=== PATIENT | male | born 1985 | race African-American/Black ===

== ENCOUNTER 2017-06-25 04:14 | Emergency (ER) | payer MEDICAID ==
[~2017-06-25] VITALS: Ht 167.6 cm; Wt 70.3 kg
[~2017-06-25 04:14] MED LIST: ALBUTEROL SULF8.5 GM INH; AZITHROMYCIN250 MG ORAL; IBUPROFEN600 MG ORAL; PREDNISONE20 MG ORAL; QVAR7.3 GM INH; VENTOLIN HFA18 GM INH
[2017-06-25 04:27] VITALS: BP 144/95
[2017-06-25] MEDS ORDERED: PREDNISONE20 MG ORAL (04:28)
--- NOTE | 2017-06-25 04:28 | Emergency Room Report ---
History of Present Illness General Chief Complaint: Asthma Source: Patient Present Illness HPI This is a 32-year-old male with history of asthma. He presents with chief complaint of asthma exacerbation. Onset for last few days. He had a cold is getting worse. Inhalers aren't helping. Worse with lying flat. Had fever initially but none now. No nausea or vomiting. No chest pain. Worse with exertion and laying flat. ever been intubated. Last ER visit was March last year. Admission was when he was young. Allergies: Coded Allergies: No Known Allergies (Unverified , 02/08/14) Patient History Past Medical History: see triage record, old chart reviewed, asthma Past Surgical History: none Pertinent Family History: none Social History: Denies: smoking Immunizations: other Reviewed Nursing Documentation: PMH: Agreed, PSxH: Agreed Nursing Documentation-PMH Hx Asthma: Yes Review of Systems Eye: Denies: eye pain, blurred vision ENT: Reports: nose congestion, Denies: ear pain, throat swelling Respiratory: Reports: cough, shortness of breath, wheezing Cardiovascular: Denies: chest pain, palpitations Gastrointestinal: Denies: abdominal pain, diarrhea, nausea, vomiting Musculoskeletal: Denies: back pain, joint pain Skin: Denies: rash Neurological: Denies: headache, numbness Endocrine: Denies: increased thirst, increased urine Hematologic/Lymphatic: Denies: easy bruising All Other Systems: negative except mentioned in HPI Physical Exam Vital Signs Date Time Temp Pulse Resp B/P (MAP) Pulse Ox O2 Delivery O2 Flow Rate FiO2 06/25/17 04:16 97.5 83 20 151/96 98 Room Air vitals with high blood pressure Sp02 EP Interpretation: reviewed, normal General Appearance: well appearing, no apparent distress, alert Head: normocephalic, atraumatic Eyes: bilateral eye PERRL, bilateral eye EOMI ENT: hearing grossly normal, normal pharynx Neck: full range of motion, supple, no meningismus Respiratory: chest non-tender, wheezing Cardiovascular #1: regular rate, rhythm, no murmur Gastrointestinal: normal bowel sounds, non tender, no mass, no organomegaly, no bruit, non-distended Musculoskeletal: back normal, gait/station normal, normal range of motion Neurologic: alert, oriented x3 Psychiatric: mood/affect normal Skin: warm/dry Medical Decision Making Diagnostic Impression: Primary Impression: Asthma exacerbation Qualified Codes: J45.901 - Unspecified asthma with (acute) exacerbation ER Course Patient presents with a viral illness complicated his asthma. No evidence of pneumonia. No evidence of respiratory failure stress. symptom resolved after breathing treatments. We'll discharge home. Last Vital Signs Date Time Temp Pulse Resp B/P (MAP) Pulse Ox O2 Delivery O2 Flow Rate FiO2 06/25/17 04:16 97.5 83 20 151/96 98 Room Air Status: improved Disposition: HOME, SELF-CARE Condition: Stable Scripts Prednisone* (PREDNISONE*) 20 Mg Tablet 60 MG ORAL DAILY, #12 TAB Prov: SISSY KHAN M.D. 06/25/17 Patient Instructions: Asthma, Adult Additional Instructions: Followup with your Dr. in 2-3 days. Return if symptom worsen. SISSY KHAN M.D. Jun 25, 2017 04:28
[2017-06-25] MEDS ORDERED: Ipratropium 0.02% Inh Soln 2.5ml UD HHN ONE (04:30)
[2017-06-25] MEDS ORDERED: Albuterol ud Inhalation HHN ONE (04:30)
[2017-06-25 05:04] VITALS: BP 144/95
== END 2017-06-25 05:04 | disposition home or self-care (01) ==
LOC: EMR 04:36
DX: J45.901 Unspecified asthma with (acute) exacerbation (principal)
CPT/HCPCS: 94640; 94664; 99284

== ENCOUNTER 2018-02-17 12:57 | Emergency (ER) | payer MEDICAID ==
[~2018-02-17] VITALS: Ht 167.6 cm; Wt 72.6 kg
[2018-02-17 13:27] VITALS: BP 131/90
--- NOTE | 2018-02-17 13:54 | Emergency Room Report ---
History of Present Illness General Chief Complaint: Diarrhea Source: Patient Present Illness HPI 32-year-old male presents to the emergency department complaining of 1 week of watery diarrhea upon returning from [facility]– [place]. Patient states that he was in [place] for approximately one week he did drink the water he returned on Monday and his symptoms began on Monday. Patient denies fevers, nausea, vomiting, blood in the stool, mucus in the stool he describes brown to yellowish watery diarrhea with not much consistency. Patient also reports multiple food allergies. Denies rashes. He denies abdominal pain except for 7/10 in severity cramping prior to bowel movement he reports mild cramping his main symptom is persistent and diarrhea. Allergies: Coded Allergies: ALMOND (Verified Allergy, Unknown, 02/17/18) Dairy (Verified Allergy, Unknown, 02/17/18) HAZELNUT (Verified Allergy, Unknown, 02/17/18) PENICILLINS (Verified Allergy, Unknown, 02/17/18) WHEAT (Verified Allergy, Unknown, 02/17/18) Patient History Past Medical History: see triage record Past Surgical History: none Pertinent Family History: none Reviewed Nursing Documentation: PMH: Agreed; PSxH: Agreed Nursing Documentation-PMH Hx Asthma: Yes Review of Systems All Other Systems: negative except mentioned in HPI Physical Exam Vital Signs Date Time Temp Pulse Resp B/P (MAP) Pulse Ox O2 Delivery O2 Flow Rate FiO2 02/17/18 13:27 98.5 85 17 131/90 96 Room Air 98.4 Sp02 EP Interpretation: reviewed, normal General Appearance: no apparent distress, alert, GCS 15, non-toxic Head: normocephalic, atraumatic ENT: hearing grossly normal, normal voice Neck: full range of motion Respiratory: lungs clear, normal breath sounds, speaking full sentences Cardiovascular #1: regular rate, rhythm Gastrointestinal: normal bowel sounds, non tender, soft Rectal: deferred Musculoskeletal: back normal, gait/station normal, normal range of motion, non- tender Neurologic: alert, oriented x3, responsive, motor strength/tone normal, sensory intact, normal gait, speech normal, grossly normal Psychiatric: judgement/insight normal Skin: normal color, no rash, warm/dry, well hydrated Medical Decision Making PA Attestation Dr. Marsh is my supervising Physician whom patient management has been discussed with. Diagnostic Impression: Primary Impression: Dehydration, mild Additional Impression: Diarrhea, travelers' ER Course 32-year-old male presents to the emergency department complaining of 1 week of watery diarrhea upon returning from [facility] [place]. Patient states that he was in [place] for approximately one week he did drink the water he returned on Monday and his symptoms began on Monday. Patient denies fevers, nausea, vomiting, blood in the stool, mucus in the stool he describes brown to yellowish watery diarrhea with not much consistency. Patient also reports multiple food allergies. Denies rashes. He denies abdominal pain except for 7/10 in severity cramping prior to bowel movement he reports mild cramping his main symptom is persistent and diarrhea. Ddx considered but are not limited to GE, colitis, Infectious diarrhea, dehydration just to name a few. Vital signs: pt. is afebrile, H&PE are most consistent with uncomplicated traveler's diarrhea No fevers, not hemorrhagic, no evidence to suggest acute abdomen on physical exam. ORDERS: -None required at this time, Pt. NAD, will treat clinically and reassess. ED INTERVENTIONS: -Mylanta PO -Bentyl -1000 NS iv hydration, Reassessment: After receiving above interventions I reexamine the patient he states he is feeling a lot better. I explained to him proposed treatment plan for return home, and symptomatic treatment. Patient verbalized his understanding and agreement with this plan. DISCHARGE: At this time pt. is stable for d/c to home. Will provide printed patient care instructions, and any necessary prescriptions. Care plan and follow up instructions have been discussed with the patient prior to discharge. Last Vital Signs Date Time Temp Pulse Resp B/P (MAP) Pulse Ox O2 Delivery O2 Flow Rate FiO2 02/17/18 13:27 98.5 85 17 131/90 96 Room Air 98.4 Disposition: HOME, SELF-CARE Condition: Stable Scripts Simethicone (Simethicone) 125 Mg Capsule 125 MG PO DAILY, #10 CAP Prov: Acacia Teixeira 02/17/18 Dicyclomine Hcl* (DICYCLOMINE HCL*) 10 Mg Capsule 10 MG PO TID, #20 CAP Prov: Acacia Teixeira 02/17/18 Patient Instructions: Diarrhea, Adult Additional Instructions: Take medications as directed. Slow or stop use of medications once stool normalizes. Follow up with a Primary Care Provider in 3-5 days, even if your symptoms have resolved. --Please review list of primary care clinics, if you do not already have a primary care provider Return sooner to ED if new symptoms occur, or current symptoms become worse. - Please note that this Emergency Department Report was dictated using [employer] camera operator technology software, occasionally this can lead to erroneous entry secondary to interpretation by the dictation equipment. Acacia Teixeira Feb 17, 2018 13:54
[2018-02-17] MEDS ORDERED: Dicyclomine HCl 10mg/5ml oral soln ORAL ONE (14:45)
[2018-02-17] MEDS ORDERED: DICYCLOMINE HCL10 MG PO (15:04)
[2018-02-17] MEDS ORDERED: SIMETHICONE125 M1 PO (15:04)
[2018-02-17 15:45] VITALS: BP 119/75
== END 2018-02-17 15:45 | disposition home or self-care (01) ==
LOC: EMR 13:45
DX: R19.7 Diarrhea, unspecified (principal); E86.0 Dehydration; J45.909 Unspecified asthma, uncomplicated; Z91.018 Allergy to other foods; Z88.0 Allergy status to penicillin
CPT/HCPCS: 96360; 96374; 99284